=== PATIENT | male | born 1995 | race African-American/Black ===

== ENCOUNTER 2020-07-18 16:29 | Emergency (ER) | payer OTHER ==
[~2020-07-18] VITALS: Ht 177.8 cm; Wt 81.3 kg
[2020-07-18 16:41] VITALS: BP 137/74
--- NOTE | 2020-07-18 17:20 | RAD ---
Exam: Right hand 3 views INDICATION: Crush trauma third and second digit TECHNIQUE: Frontal, lateral and oblique views of the right hand Comparisons: None FINDINGS: Bone mineralization is normal. No acute or healed fractures. Soft tissues are unremarkable. Joint spa marisela are well-maintained. IMPRESSION: No acute osseous abnormality. Electronically signed by: Krystal Orta MD (07/18/2020 5:18 PM) JAENNINE
--- NOTE | 2020-07-18 17:34 | PHYS DOC ---
Past History Past Medical History: Asthma Past Surgical History: No Surgical History Alcohol Use: None Adult General Chief Complaint Chief Complaint: FINGER INJURY HPI HPI Patient is a 24-year-old male who presents emergency department reporting approximately 45 minutes prior to arrival to the ER today a door was accidentally closed onto his hand pinching his right hand between the door and the door jam. Patient reports a 7/10 on the 1-10 pain scale. Patient states he has not taken anything for his pain. Patient denies any numbness or tingling to his hand, complaining of pain only. Patient denies any other physical complaints or physical concerns. Patient denies any allergies to medications, reports taking albuterol MDI as needed for sports induced asthma, denies any recent surgeries, denies recent travel. Patient reports his immunizations are up-to-date. Review of Systems Review of Systems 14 body systems of review of systems have been reviewed. See HPI for pertinent positives and negative responses, otherwise all other systems are negative, nonpertinent or noncontributory. Physical Exam Physical Exam Constitutional: Well developed, well nourished, no acute distress, non-toxic appearance. 24-year-old male in no apparent distress holding an ice pack onto his right hand. HENT: Normocephalic, atraumatic, bilateral external ears normal, oropharynx moist, no oral exudates, nose normal. Eyes: No obvious drainage from eyes, conjunctivae appear normal, patient tracking normally. Neck: Normal range of motion, no tenderness, supple, no stridor. Cardiovascular:Heart rate regular rhythm, no murmur heart sounds S1-S2 to auscultation. Lungs & Thorax: Bilateral breath sounds clear to auscultation no adventitious lung sounds appreciated. Abdomen: Bowel sounds normal, soft, no tenderness, no masses, no pulsatile masses. Skin: Warm, dry, no erythema, no rash. Extremities: No tenderness, no cyanosis, no clubbing, ROM intact, no edema. Except for right hand, no crepitus appreciated, no deformities appreciated, distal cap refill of all fingers less than 2 seconds, pain with passive range of motion of digits #2, #3, #4. Pain to palpation on palmar and dorsal aspect hand surfaces. Skin is intact. No loss of sensation, +2 radial pulse. Neurologic: Alert and oriented X 3, normal motor function, normal sensory function, no focal deficits noted. [] Psychologic: Affect normal, judgement normal, mood normal. [] Current Patient Data Vital Signs Vital Signs Date Time Temp Pulse Resp B/P (MAP) Pulse Ox O2 Delivery O2 Flow Rate FiO2 07/18/20 16:41 97.9 77 16 137/74 (95) 97 Room Air EKG EKG [] Radiology/Procedures Radiology/Procedures PATIENT: FIORELLA BETANCOURT ACCOUNT: [id number] : 1995 LOCATION: ER AGE: 24 SEX: M EXAM STATUS: REG ER ORD. PHYSICIAN: ANITA CAMARA APRN REASON: crush trauma to 2nd and 3rd finger PROCEDURE: HAND RIGHT 3V Exam: Right hand 3 views INDICATION: Crush trauma third and second digit TECHNIQUE: Frontal, lateral and oblique views of the right hand Comparisons: None FINDINGS: Bone mineralization is normal. No acute or healed fractures. Soft tissues are unremarkable. Joint spaces are well-maintained. IMPRESSION: No acute osseous abnormality. Electronically signed by: Krystal Parker MD (07/18/2020 5:18 PM) [facility] DICTATED AND SIGNED BY: KRYSTAL PARKER MD DATE: 07/18/201716 CC: ANITA CAMARA APRN; PAMELA CARLIN DO ~MTH0 0 Heart Score C/O Chest Pain: No Risk Factors: Risk Factors: DM, Current or recent (<one month) smoker, HTN, HLP, family history of CAD, obesity. Risk Scores: Risk Factors: DM, Current or recent (<one month) smoker, HTN, HLP, family history of CAD, obesity. Course & Med Decision Making Course & Med Decision Making Pertinent Labs and Imaging studies reviewed. (See chart for details) 24-year-old male, vital signs reviewed, presents to the emergency department with concerns of right hand pain after a door was accidentally closed onto his hand and fingers. Physical examination concerning for possible bony fracture versus contusion of right hand and fingers. An x-ray of the right hand was ordered. Patient was offered pain medication, patient states he does not want any pain medication. X-ray read negative for acute fracture by house radiologist interpretation. Diagnosis of contusion right hand and fingers made. Discussed findings with patient, recommended Velcro wrist splint to splint hand and proximal fingers for comfort. Patient may wear for the next few days and return to normal work on Thursday without splint. Discussed with patient to follow-up at [facility] in 1 week if no significant improvement of pain for a reevaluation and consideration of an additional x-ray. Discussed with patient RICE therapy, discussed using ice 30 minutes on 30 minutes off while awake for the next 48 hours. Discussed with patient may take [id number] Tylenol and/or Motrin for pain and discomfort. Patient gave verbal understanding of discharge home instructions, Velcro wrist splint use for comfort, RICE therapy, [id number] pain medication for pain management, return to ER precautions and concerns, follow-up with [facility] at hospital for ongoing pains, patient was discharged home without incident. Dragon Disclaimer Dragon Disclaimer This electronic medical record was generated, in whole or in part, using a voice recognition dictation system. Departure Departure: Impression: Primary Impression: Contusion of right hand, initial encounter Disposition: HOME / SELF CARE / HOMELESS Condition: GOOD Referrals: PAMELA CARLIN DO (PCP) Patient Instructions: Contusion Additional Instructions: You suffered a crush injury to your right hand, an x-ray was performed in the emergency department today did not show any bony abnormality or broken bones. I am diagnosing you with a contusion of your right hand and fingers. I recommend that you wear a Velcro wrist splint to help stabilize your hand bones and adjacent structures for the next few days. As we discussed, please continue to use ice 30 minutes on and 30 minutes off for the next 48 hours. You may remove the wrist splint and resume normal activity this coming Thursday. You may use [id number] Tylenol and/or Motrin for pain or discomfort. If still significantly painful within 1 week, I recommend you follow-up with the [facility] for reexamination and consideration of an additional x-ray. Please return to the emergency department for worsening symptoms or other concerns. EMERGENCY DEPARTMENT GENERAL DISCHARGE INSTRUCTIONS Thank you for coming to [facility] (ED) today and trusting us with you care. We trust that you had a positivie experience in our Emergency Department. If you wish to speak to the department management, you may call the director at [phone]. YOUR FOLLOW UP INSTRUCTIONS ARE FOLLOWS: 1. Do you have a private Doctor? If you do not have a private doctor, please ask for a resource list of physicians or clinics that may be able to assist you with follow up care. 2. The Emergency Physician has interpreted your x-rays. The X-Ray specialist will also review them. If there is a change in the findings, you will be notified in 48 hours when at all possible. 3. A lab test or culture has been done, your results will be reviewed and you will be notified if you need a change in treatment. ADDITIONAL INSTRUCTIONS AND INFORMATION: 1. Your care today has been supervised by a physician who is specially trained in emergency care. Many problems require more than one evaluation for a complete diagnosis and treatment. We recommend that you schedule your follow up appointment as recommended to ensure complete treatment of you illness or injury. If you are unable to obtain follow up care and continue to have a problem, or if your condition worsens, we recommend that you return to the ED. 2. We are not able to safely determine your condition over the phone nor are we able to give sound medical advice over the phone. For these safety reasons, if you call for medical advice we will ask you to come to the ED for further evaluation. 3. If you have any questions regarding these discharge instructions please call the ED at [phone]. SAFETY INFORMATION: In the interest of safety, wellness, and injury prevention; we encourage you to wear your sealbelt, if you smoke; quite smoking, and we encourage family to use a protective helmet for bicycling and other sporting events that present an increased risk for head injury. IF YOUR SYMPTOMS WORSEN OR NEW SYMPTOMS DEVELOP, OR YOU HAVE CONCERNS ABOUT YOUR CONDITION; OR IF YOUR CONDITION WORSENS WHILE YOU ARE WAITING FOR YOUR FOLLOW UP APPOINTMENT; EITHER CONTACT YOUR PRIMARY CARE DOCTOR, THE PHYSICIAN WHOSE NAME AND NUMBER YOU WERE GIVEN, OR RETURN TO THE ED IMMEDIATELY. ANITA CAMARA APRN Jul 18, 2020 17:34
== END 2020-07-18 17:50 | disposition home or self-care (01) ==
LOC: ER 16:29
DX: S60.221A Contusion of right hand, initial encounter (principal); J45.909 Unspecified asthma, uncomplicated; W23.0XXA Caught, crushed, jammed, or pinched between moving objects, initial encounter; Y93.89 Activity, other specified; Y92.89 Other specified places as the place of occurrence of the external cause; Y99.8 Other external cause status
CPT/HCPCS: 29125; 73130; 99283

== ENCOUNTER → 2020-08-22 | Outpatient (CLI) | payer OTHER ==
--- NOTE | 2020-08-22 15:41 | RAD ---
INDICATION: Reason: LT CALF PAIN AND SWELLING / Spl. Instructions: / History: COMPARISON: None. TECHNIQUE: Grayscale, color and doppler ultrasound images were obtained of the left lower extremity v enous vasculature. LEFT: No thrombus identified in the common femoral vein, femoral vein, popliteal vein or visualized calf ve ins. IMPRESSION: * No thrombus identified in deep venous system of the left lower extremity. Electronically signed by: Bull Wilde MD (08/22/2020 3:38 PM) [id number]
== END ==
LOC: US 14:13
PROVIDERS: ATTEND Family Medicine
DX: R22.42 Localized swelling, mass and lump, left lower limb (principal)
CPT/HCPCS: 93971